=== PATIENT | female | born 1935 | race Caucasian/White ===

== ENCOUNTER 2025-08-21 07:31 | Outpatient (CLI) | payer MEDICARE | END 2025-08-21 07:32 | disposition home or self-care (01) | LOC: SCSMRI 07:31 | PROVIDERS: ATTEND Family Medicine | DX: R25.1 Tremor, unspecified (principal); I73.9 Peripheral vascular disease, unspecified; I67.82 Cerebral ischemia | CPT/HCPCS: 70551 ==